=== PATIENT | male | born 1990 | race Caucasian/White ===

== ENCOUNTER 2016-07-26 13:38 | Emergency (ER) | payer SELFPAY ==
--- NOTE | 2016-07-26 14:11 | ER Document Report ---
ED Medical Screen (RME) - General Stated Complaint: HAND INJURY Notes: 25 yo male c/o right hand injury. fell off skateboard, injured right hand. + pain and swelling to right 4th and 5th metacarpals. + abrasion. (CE WILHELM) Past Medical History Skin Medical History: Comment Only Hx MRSA - MRSA BUTTOCKS JANUARY 2009 Course - Re-evaluation Re-evalutation: 07/26/16 16:45 I personally performed the services described in the documentation, reviewed and edited the documentation which was dictated to my scribe in my presence, and it accurately records my words and actions. Patient presents emergency per with right hand pain after he tripped skateboarding last night. He says it hurt immediately but he went home and this morning it hurt a lot worse. He says he doesn't have any health insurance that he wanted try and see if, [employer] work at home denies hitting his head neck chest abdomen pelvis struck a lumbar spine. On examination he has some abrasions and nondisplaced fracture at the base of the fifth but no open wounds. Good pulses perfusion no other traumatic injury. Update on his tetanus given clindamycin splint follow-up with [facility] came primary care clinic follow-up within 2-3 days discussed reasons for ED return sooner patient states he does not have health insurance I'm concerned about follow-up I am giving him information for the [facility] and expressed to him significantly that he needed to follow up in terms of the infection and the wound. And told him that if he cannot follow up with primary care provider he needs come back to the emergency prone be reassessed and reevaluated (ENID ROBLES) - Vital Signs Vital signs: Temp Pulse Resp BP Pulse Ox 98.8 F 94 16 133/61 H 97 07/26/16 14:06 07/26/16 14:06 07/26/16 14:06 07/26/16 14:06 07/26/16 14:06 (CE WILHELM) (ENID ROBLES)
[2016-07-26] MEDS ORDERED: CLINDAMYCIN HCL 150 MG CAPSULE PO ONE (16:42)
[2016-07-26] MEDS ORDERED: TETANUS/DIPHTHERIA TOX-ADULT 0.5 ML SYR (>=7YO) IM ONE (16:43)
--- NOTE | 2016-07-26 16:46 | ER Document Report ---
ED Hand/Wrist Injury - General Mode of Arrival: Ambulatory Information source: Patient TRAVEL OUTSIDE OF THE [place] IN LAST 30 DAYS: No - HPI Patient complains to provider of: Right Hand Pain Injury to: Hand - Right Onset: Yesterday Where: Outdoors - General Chief Complaint: Hand Injury Stated Complaint: HAND INJURY Notes: Patient is a 25-year-old male presenting to the emergency department concerned of right hand pain after falling while skateboarding last night. Patient states he was traveling with his right foot forward when the board stopped, but he did not. Patient fell on his right hand. Patient denies any other injuries or loss of consciousness. (LEORA GHOTRA) - Related Data Allergies/Adverse Reactions: amoxicillin [From Augmentin] Allergy (Verified 07/26/16 14:10) cefaclor [From Ceclor] Allergy (Verified 07/26/16 14:10) clavulanic acid [From Augmentin] Allergy (Verified 07/26/16 14:10) sulfamethoxazole [From Septra] Allergy (Verified 07/26/16 14:10) trimethoprim [From Septra] Allergy (Verified 07/26/16 14:10) Past Medical History - General Information source: Patient - Social History Smoking Status: Never Smoker Chew tobacco use (# tins/day): No Frequency of alcohol use: None Drug Abuse: None Family History: Reviewed & Not Pertinent Patient has suicidal ideation: No Patient has homicidal ideation: No Skin Medical History: Reports Hx MRSA - MRSA BUTTOCKS JANUARY 2009 Review of Systems - Review of Systems Constitutional: No symptoms reported EENT: No symptoms reported Cardiovascular: No symptoms reported Respiratory: No symptoms reported Gastrointestinal: No symptoms reported Genitourinary: No symptoms reported Male Genitourinary: No symptoms reported Musculoskeletal: See HPI, Other - Right hand pain from fall. Skin: See HPI, Other - Abrasion right hand Hematologic/Lymphatic: No symptoms reported Neurological/Psychological: No symptoms reported Physical Exam - General General appearance: Appears well, Alert - HEENT Head: Normocephalic, Atraumatic Eyes: Normal Pupils: PERRL - Respiratory Respiratory status: No respiratory distress Chest status: Nontender - Cardiovascular Rhythm: Regular Heart sounds: Normal auscultation Murmur: Yes - Abdominal Inspection: Normal - Back Back: Normal - Extremities General lower extremity: Normal inspection Hand: Tender, Abrasion - Pain over base of 5th metacarpal of right hand with point tenderness. Some abrasions at lateral aspect of right hand and wrist. Full range of motion of wrist. Good perfusion. No proximal tenderness of elbow or shoulder. - Neurological Neuro grossly intact: Yes Cognition: Normal Orientation: AAOx4 Kristina Coma Scale Eye Opening: Spontaneous Kristina Coma Scale Verbal: Oriented [place] Coma Scale Motor: Obeys Commands Kristina Coma Scale Total: 15 Speech: Normal - Psychological Associated symptoms: Normal affect, Normal mood - Skin Skin Temperature: Warm Skin Moisture: Dry Skin Color: Normal - Vital signs Vitals: Temp Pulse Resp BP Pulse Ox 98.8 F 94 16 133/61 H 97 07/26/16 14:06 07/26/16 14:06 07/26/16 14:06 07/26/16 14:06 07/26/16 14:06 (ENID ROBLES) (LEORA GHOTRA) Discharge - Discharge Clinical Impression: Abrasion Closed hand fracture Qualifiers: Encounter type: initial encounter Laterality: right Qualified Code(s): S62.91XA - Unspecified fracture of right wrist and hand, initial encounter for closed fracture Additional Instructions: Fractured Metacarpal You have broken a metacarpal bone in the hand. The fracture is usually caused by hitting the hand against a hard surface, but can also be caused by jamming a finger. At first the injury should be rested, elevated, and ice packed. The usual treatment is splinting for four to six weeks. For some patients, a cast is preferable. The physician will advise you. It's important to avoid any twisting or jamming of the fingers while the fracture is healing. Force on the fingers can make the fracture move. Usually , one or two fingers are included in the splint or cast. Sometimes fingers are taped instead -- in this case, extra caution to prevent a twisting of the fingers is necessary. Call the doctor or come back if swelling or pain become severe, if numbness develops, or if you suspect you may have disturbed the fracture. Abrasions An abrasion is a scraping injury of the skin. Some scarring may result. The seriousness of an abrasion is not always obvious at first. Hidden tissue damage may be present and infection may occur despite proper care. Complete healing may take from ten days to as long as a month. The healing time depends on the depth of the abrasion, and on the amount of crushing of underlying tissues from the injury. Keep the wound and dressing clean. Do not shower or bathe the area until okayed by the doctor. If the dressing gets wet, remove it and blot the wound dry, then reapply a clean dressing. Dressings should be changed every day. Sunscreen should be used for six months after the skin is healed. If any signs of infection occur (swelling, redness, increasing tenderness, red streaks, profuse purulent drainage from the abrasion, tender lumps in the armpit or groin above the abrasion, or fever), see the doctor immediately. Follow-up with the [facility] and I've given you a family doctor for follow-up in 2 days return to the ER sooner for increasing worsening or new symptoms Prescriptions: Clindamycin HCl 150 mg PO BID #14 capsule Hydrocodone/Acetaminophen [[place] 5-325 mg Tablet] 2 tab PO TID #15 tab Referrals: [facility] [Provider Group] - Follow up tomorrow (In 2-3 days return for increasing worsening or new symptoms) Scribe Documentation - Scribe Written by Juanito:: Leora Ghotra 07/26/2016 7311 acting as scribe for :: Kar
[2016-07-26 18:22] VITALS: BP 128/58
== END 2016-07-26 18:00 | disposition home or self-care (01) ==
LOC: ER 13:38
DX: S62.346A Nondisplaced fracture of base of fifth metacarpal bone, right hand, initial encounter for closed fracture (principal); V00.131A Fall from skateboard, initial encounter; Y93.51 Activity, roller skating (inline) and skateboarding; Y92.488 Other paved roadways as the place of occurrence of the external cause; Z88.0 Allergy status to penicillin; Z88.1 Allergy status to other antibiotic agents; Z86.14 Personal history of Methicillin resistant Staphylococcus aureus infection
CPT/HCPCS: 90471; 90714; 99283